=== PATIENT | male | born 1975 | race Caucasian/White ===

== ENCOUNTER 2017-10-08 16:58 | Emergency (ER) | payer OTHER, BC ==
[~2017-10-08] VITALS: Ht 177.8 cm; Wt 108.6 kg
[~2017-10-08 16:58] MED LIST: IBUP800T23 PO; TRAZ100 PO; WELL200T PO
[2017-10-08 17:09] VITALS: BP 159/94; PULSE 80; RESP 16; TEMP 98.4; O2SAT 95
== END 2017-10-08 21:35 | disposition left against medical advice (07) ==
LOC: PHED 16:58 → PHEFT 21:35
DX: Z04.1 Encounter for examination and observation following transport accident (principal)
CPT/HCPCS: 99281